=== PATIENT | male | born 1950 ===

== ENCOUNTER 2018-08-09 13:44 | Inpatient (IN) | payer OTHER ==
[2018-08-09 13:45] VITALS: BMI 31.2
[2018-08-09 16:34] LABS: BASO % 0.9 % (0.0-2.0); EOS % 0.8 % (0.0-4.0); HEMOGLOBIN 13.4 g/dL (12.0-18.0); LYMPH # 1.1 K/uL (1.0-4.3); LYMPH % 24.4 % (20.0-40.0); MEAN CORPUSCULAR HEMOGLOBIN 28.3 pg (27.0-31.0); MEAN CORPUSCULAR HGB CONC 32.6 g/dL (33.0-37.0); MEAN PLATELET VOLUME 9.6 fL (7.2-11.7); MONO # 0.5 K/uL (0.0-0.8); MONO % 10.9 % (0.0-10.0); NEUT # 2.9 K/uL (1.8-7.0); RBC 4.72 Mil/uL (4.40-5.90); WHITE BLOOD COUNT 4.6 K/uL (4.8-10.8)
--- NOTE | 2018-08-09 16:38 | C.PDOC ---
History Of Present Illness 67 y/o male,w/PMhx of liver cirrhosis, presents to the ER complaining of abdominal distention which has been present for the past 1 week. Patient states that he has hematuria and blood in stool. Patient reports that he still drinks about 1-2 beers per day. Denies having fever,chills, nausea, and vomiting. Time Seen by Provider: 08/09/18 15:48 Chief Complaint (Nursing): Abdominal Pain History Per: Patient History/Exam Limitations: no limitations Onset/Duration Of Symptoms: Days Current Symptoms Are (Timing): Still Present Severity: Moderate Past Medical History Reviewed: Historical Data, Nursing Documentation, Vital Signs Vital Signs: Last Vital Signs Temp 98.3 F 08/09/18 14:35 Pulse 91 H 08/09/18 14:35 Resp 18 08/09/18 16:02 BP 167/96 H 08/09/18 14:35 Pulse Ox 96 08/09/18 14:35 - Medical History PMH: Benign Prostatic Hyperplasia, Depression Other Surgeries: Hx of surgeries - [facility] Procedures ESOPHAGOGASTRODUODENOSCOPY [EGD] W/CLOSED BIOPSY (12/29/12) PACKED CELL TRANSFUSION (12/29/12) Family History: States: No Known Family Hx - Social History Hx Tobacco Use: No Hx Alcohol Use: Yes Hx Substance Use: No - Immunization History Hx Tetanus Toxoid Vaccination: No Hx Influenza Vaccination: No Hx Pneumococcal Vaccination: No Review Of Systems Except As Marked, All Systems Reviewed And Found Negative. Constitutional: Negative for: Fever, Chills Gastrointestinal: Positive for: Other (abdominal distention, blood in stool). Negative for: Vomiting, Diarrhea Genitourinary: Positive for: Hematuria Physical Exam - Physical Exam Appears: Non-toxic, No Acute Distress Skin: Normal Color, Warm, Dry Head: Atraumatic, Normacephalic Eye(s): bilateral: Normal Inspection Nose: Normal Oral Mucosa: Moist Neck: Supple Chest: Symmetrical Cardiovascular: Rhythm Regular Respiratory: Normal Breath Sounds, No Rales, No Rhonchi, No Wheezing Gastrointestinal/Abdominal: Soft, No Tenderness, Distention, No Guarding, No Rebound Extremity: Normal ROM, Other (3+ bilateral pitting edema) Neurological/Psych: Oriented x3, Normal Speech ED Course And Treatment - Laboratory Results Result Diagrams: 08/09/18 16:30 08/09/18 16:30 ECG: Interpreted By Me, Viewed By Me ECG Rhythm: Sinus Rhythm Interpretation Of ECG: NSR with normal intervals, normal axises, poor R wave progression, and no ST/ T wave abnormalities Rate From EC O2 Sat by Pulse Oximetry: 96 (RA) Pulse Ox Interpretation: Normal Medical Decision Making Medical Decision Making: Assessment: 1.Liver Cirrhosis 2.Ascites 3. Hematuria and GI Bleeding Plan: --Labs --UA --ECG --CXR --Protonix IV Disposition Discussed With Dr.: Gallito Tang Counseled Patient/Family Regarding: Studies Performed, Diagnosis - Disposition Disposition: HOSPITALIZED Disposition Time: 17:48 Condition: FAIR - Clinical Impression Clinical Impression: Ascites, Alcohol abuse - Scribe Statement The provider has reviewed the documentation as recorded by the Nimishaibe Helio Russo Provider Attestation: All medical record entries made by the Nimishaibe were at my direction and personally dictated by me. I have reviewed the chart and agree that the record accurately reflects my personal performance of the history, physical exam, medical decision making, and the department course for this patient. I have also personally directed, reviewed, and agree with the discharge instructions and disposition.
[2018-08-09 16:42] LABS: MEAN CELL VOLUME 86.8 fL (80.0-94.0)
[2018-08-09 16:48] LABS: INR 1.2; PROTHROMBIN TIME 13.6 SECONDS (9.7-12.2)
[2018-08-09 16:53] LABS: ALB/GLOB RATIO 0.9 (1.0-2.1); ALBUMIN 3.2 g/dL (3.5-5.0); ALT/SGPT 44 U/L (21-72); AST/SGOT 121 U/L (17-59); BLOOD UREA NITROGEN 3 mg/dL (9-20); CALCIUM 8.1 mg/dl (8.6-10.4); GFR NON-AFRICAN AMERICAN > 60; LIPASE 132 U/L (23-300)
[2018-08-09 17:51] LABS: SQUAMOUS EPITHIAL 1 /hpf (0-5); URINE HYALINE CAST 0-2 /lpf (0-2)
[2018-08-09 17:57] LABS: URINE CLARITY Clear (Clear); URINE COLOR YELLOW (YELLOW)
[2018-08-09 17:58] LABS: URINE BILIRUBIN NEGATIVE (NEGATIVE); URINE GLUCOSE (UA) Normal (Normal)
--- NOTE | 2018-08-09 17:58 | RAD ---
Date of service: 08/09/2018 PROCEDURE: CHEST RADIOGRAPH, 1 VIEW HISTORY: abd pain COMPARISON: 12/28/2012 FINDINGS: LUNGS: Low lung volumes, portable technique accentuate markings at the lung bases. PLEURA: No pneumothorax or pleural fluid seen. CARDIOVASCULAR: No aortic atherosclerotic calcification present. Normal. OSSEOUS STRUCTURES: No significant abnormalities. VISUALIZED UPPER ABDOMEN: Normal. OTHER FINDINGS: None. IMPRESSION: No active disease.No significant interval change compared to the prior examination(s).
[2018-08-09 17:59] LABS: URINE BLOOD 1+ (NEGATIVE); URINE PROTEIN NEGATIVE (NEGATIVE)
[2018-08-09 18:00] LABS: URINE LEUKOCYTE ESTERASE NEGATIVE Leu/uL (Negative)
[2018-08-09] MEDS ORDERED: Iohexol 300 100 ML IJ ONE (18:01)
--- NOTE | 2018-08-09 19:07 | CP.PCM.HP ---
<Valorie Dyson P - Last Filed: 08/10/18 09:40> History of Present Illness - History of Present Illness History of Present Illness: H&P for Dr. Tang. 67 year old male with PMHx of alcohol use disorder and liver cirrhosis with TIPS presents to ED for worsening abdominal distention for the past 2 weeks. Associated symptoms include abdominal pain described as pressure, testicular swelling, leg swelling, subjective fever, chills, nausea, diarrhea, flatus, melena. Patient also complains of urinary frequency, urinary retention and gross hematuria since yesterday. Patient states he has never experienced these symptoms before. Denies chest pain, palpitations, shortness of breath, cough, vomiting, constipation, hematochezia. PMHx: liver cirrhosis with TIPS, alcohol use disorder PSHx: TIPS 2005, Esophogeal bands Meds: none Allergies:NKDA Family Hx: Denies Social: 2 beers daily, denies withdrawal seizures, Denies illicit drugs and tobacco use. Works odd jobs. Proxy: son, Eliot Figueredo [phone] Review of Systems: -Gen: +subjective fever, + chills, No headache, No lethargy, No weakness. -HEENT: No dizziness, No change in vision, No change in hearing, No sore throat, No dysphagia, No nasal congestion, No mucous. -Cardio: No chest pain, No palpitations, No lower extremity edema, No orthopnea. -Resp: No cough, No dyspnea, No hemoptysis, No wheezing, No pain on inspiration. -GI: + abdominal pain, + nausea, No vomiting, + diarrhea, +melena. -: + urinary freq, + hematuria, +retention -MSK: No back pain, No muscle weakness, No radiating pain. -Skin: No itching, No rash, No lesions. -Neuro: No confusion, No numbness, No tingling, No focal weakness, No radicular pain, No syncope. Present on Admission - Present on Admission Any Indicators Present on Admission: No Past Patient History - Past Social History Smoking Status: Never Smoked - GASTROINTESTINAL Other/Comment: Cirrhosis - PSYCHIATRIC Hx Depression: Yes Hx Substance Use: No - SURGICAL HISTORY Hx Liver Transplant: Yes Other/Comment: wall stent implant - ANESTHESIA Hx Anesthesia: Yes Hx Anesthesia Reactions: No Meds Allergies/Adverse Reactions: Allergies Allergy/AdvReac Type Severity Reaction Status Date / Time No Known Allergies Allergy Verified 12/15/12 21:54 Physical Exam - Constitutional Appears: No Acute Distress, Other (smells of alcohol) - Head Exam Head Exam: ATRAUMATIC, NORMOCEPHALIC - Eye Exam Eye Exam: EOMI, Scleral icterus - ENT Exam ENT Exam: Mucous Membranes Moist - Neck Exam Neck exam: Negative for: Lymphadenopathy - Respiratory Exam Respiratory Exam: Clear to Auscultation Bilateral, NORMAL BREATHING PATTERN. absent: Rales, Rhonchi, Wheezes - Cardiovascular Exam Cardiovascular Exam: REGULAR RHYTHM, +S1, +S2. absent: Systolic Murmur - GI/Abdominal Exam GI & Abdominal Exam: Distended, Firm, Tenderness (diffusely tender). absent: Guarding, Rebound Additional comments: dullness to percussion. umbilical hernia, bilateral inguinal hernias R>L - Rectal Exam Additional comments: External hemorrhoid from 1oclock to 6oclock. Light brown stool. No active bleeding noted. - Exam Exam: Scrotal Swelling (L>R) - Extremities Exam Extremities exam: Positive for: full ROM, pedal edema (1+ pitting edema bilaterally). Negative for: calf tenderness, normal inspection (lower extremity swelling, upper extremity wasting) - Neurological Exam Neurological exam: Alert, CN II-XII Intact, Oriented x3 - Psychiatric Exam Psychiatric exam: Normal Affect, Normal Mood - Skin Additional comments: mild jaundice Results - Vital Signs Recent Vital Signs: Last Vital Signs Temp 98.3 F 08/09/18 14:35 Pulse 88 08/09/18 17:46 Resp 18 08/09/18 17:46 BP 146/83 08/09/18 17:46 Pulse Ox 96 08/09/18 18:13 - Labs Result Diagrams: 08/10/18 07:25 08/10/18 07:25 Labs: Laboratory Results - last 24 hr 08/09/18 08/09/18 08/09/18 16:30 16:30 16:30 WBC 4.6 L RBC 4.72 Hgb 13.4 Hct 40.9 MCV 86.8 D MCH 28.3 MCHC 32.6 L RDW 18.0 H Plt Count 152 MPV 9.6 Neut % (Auto) 63.0 Lymph % (Auto) 24.4 [place] % (Auto) 10.9 H Eos % (Auto) 0.8 Baso % (Auto) 0.9 Neut # (Auto) 2.9 Lymph # (Auto) 1.1 [place] # (Auto) 0.5 Eos # (Auto) 0.0 Baso # (Auto) 0.0 PT 13.6 H INR 1.2 APTT 32 Sodium 136 Potassium 3.2 L Chloride 102 Carbon Dioxide 26 Anion Gap 10 BUN 3 L Creatinine 0.5 L Est GFR ( Amer) > 60 Est GFR (Non-Af Amer) > 60 Random Glucose 143 H D Calcium 8.1 L Total Bilirubin 2.5 H AST 121 H ALT 44 Alkaline Phosphatase 169 H Ammonia Troponin I < 0.0120 Total Protein 6.8 Albumin 3.2 L D Globulin 3.6 Albumin/Globulin Ratio 0.9 L Lipase 132 Urine Color Urine Clarity Urine pH Ur Specific [place] Urine Protein Urine Glucose (UA) Urine Ketones Urine Blood Urine Nitrate Urine Bilirubin Urine Urobilinogen Ur Leukocyte Esterase Urine WBC (Auto) Urine RBC (Auto) Ur Squamous Epith Cells Hyaline Casts Alcohol, Quantitative 203 H Blood Type Antibody Screen 08/09/18 08/09/18 08/09/18 16:30 16:30 17:00 WBC RBC Hgb Hct MCV MCH MCHC RDW Plt Count MPV Neut % (Auto) Lymph % (Auto) Livingston % (Auto) Eos % (Auto) Baso % (Auto) Neut # (Auto) Lymph # (Auto) Living[place] # (Auto) Eos # (Auto) Baso # (Auto) PT INR APTT Sodium Potassium Chloride Carbon Dioxide Anion Gap BUN Creatinine Est GFR ( Amer) Est GFR (Non-Af Amer) Random Glucose Calcium Total Bilirubin AST ALT Alkaline Phosphatase Ammonia < 9 L Troponin I Total Protein Albumin Globulin Albumin/Globulin Ratio Lipase Urine Color Yellow Urine Clarity Clear Urine pH 5.0 Ur Specific [place] 1.011 Urine Protein Negative Urine Glucose (UA) Normal Urine Ketones Negative Urine Blood 1+ H Urine Nitrate Negative Urine Bilirubin Negative Urine Urobilinogen 4.0 Ur Leukocyte Esterase Negative Urine WBC (Auto) 1 Urine RBC (Auto) 3 Ur Squamous Epith Cells 1 Hyaline Casts 0-2 Alcohol, Quantitative Blood Type O POSITIVE Antibody Screen Negative Assessment & Plan - Assessment and Plan (Free Text) Plan: 67 year old male with PMHx of liver cirrhosis with TIPS and alcohol use disorder admitted for ascites Ascites Liver cirrhosis CT abdomen: Large amount of ascites with cirrhotic liver. TIPS catheter within liver. Splenomegaly. See full report. Abd US 2014: TIPS stent occlusion is seen. See full report IR consulted for evaluation of replacing TIPS Spironolactone 25mg PO BID Propranolol 20mg PO BID Fluid restriction Alcohol use disorder Folic Acid 1mg PO daily Ativan 1mg IVP Q4H PRN withdrawal sx Thiamine 100mg PO daily Multivitamin CIWA protocol Hematuria INR 1.2 Hgb: 14 Monitor H&H PPx VTE contraindicated due to complaint of hematuria Discussed with Dr. Kitty Dyson, PGY-1 <Gallito Tang P - Last Filed: 08/11/18 08:53> Results - Vital Signs Recent Vital Signs: Last Vital Signs Temp 98.9 F 08/11/18 08:15 Pulse 67 08/11/18 08:15 Resp 20 08/11/18 08:15 BP 122/75 08/11/18 08:15 Pulse Ox 96 08/11/18 08:15 - Labs Result Diagrams: 08/11/18 06:27 08/11/18 06:27 Labs: Laboratory Results - last 24 hr 08/10/18 08/10/18 08/10/18 07:25 17:06 21:13 WBC RBC Hgb Hct MCV MCH MCHC RDW Plt Count MPV Neut % (Auto) Lymph % (Auto) Living[place] % (Auto) Eos % (Auto) Baso % (Auto) Neut # (Auto) Lymph # (Auto) Living[place] # (Auto) Eos # (Auto) Baso # (Auto) Sodium 135 Potassium 3.6 Chloride 103 Carbon Dioxide 27 Anion Gap 9 L BUN 4 L Creatinine 0.5 L Est GFR ( Amer) > 60 Est GFR (Non-Af Amer) > 60 Random Glucose 112 H D Lactic Acid 1.4 Calcium 8.0 L Phosphorus 2.9 Magnesium 1.6 Total Bilirubin 3.0 H AST 102 H ALT 31 Alkaline Phosphatase 159 H Total Protein 6.1 L Albumin 2.8 L Globulin 3.2 Albumin/Globulin Ratio 0.9 L Lipase 98 Fluid Source Peritoneal/ascites Fluid Appearance Sl cloudy Fluid WBC 42.0 Fluid RBC 93.0 H Fluid Tot Cell Count 100 H Fluid Neutrophils 26.0 H Fluid Lymphocytes 52.0 H Fld Monocyte/Macrophag 22 H Fluid Comment 08/11/18 08/11/18 06:27 06:27 WBC 4.6 L RBC 4.42 Hgb 12.9 Hct 39.1 MCV 88.4 MCH 29.1 MCHC 32.9 L RDW 17.7 H Plt Count 116 L D MPV 10.0 Neut % (Auto) 66.8 Lymph % (Auto) 16.6 L Livingston % (Auto) 14.3 H Eos % (Auto) 1.7 Baso % (Auto) 0.6 Neut # (Auto) 3.1 Lymph # (Auto) 0.8 L [place] # (Auto) 0.7 Eos # (Auto) 0.1 Baso # (Auto) 0.0 Sodium 133 Potassium 3.9 Chloride 98 Carbon Dioxide 31 H Anion Gap 8 L BUN 8 L Creatinine 0.7 L Est GFR ( Amer) > 60 Est GFR (Non-Af Amer) > 60 Random Glucose 105 Lactic Acid Calcium 8.0 L Phosphorus 2.5 Magnesium 1.6 Total Bilirubin 3.9 H AST 84 H ALT 28 Alkaline Phosphatase 129 H Total Protein 5.7 L Albumin 2.9 L Globulin 2.8 Albumin/Globulin Ratio 1.0 Lipase Fluid Source Fluid Appearance Fluid WBC Fluid RBC Fluid Tot Cell Count Fluid Neutrophils Fluid Lymphocytes Fld Monocyte/Macrophag Fluid Comment Attending/Attestation - Attestation I have personally seen and examined this patient.: Yes I have fully participated in the care of the patient.: Yes I have reviewed all pertinent clinical information: Yes Notes (Text): 08/11/18 08:52 History of TIPPS, now blocked with symptomatic ascitis Ongoing alcohol abuse H/o hepc, probably cleared virus Plan IR, hepatic surg consult for possible tipps revision tap counselled about alcoholism watch for withdrawal, thiamine, mvt see orders for detail.
[2018-08-09 20:59] VITALS: RESP 20
[2018-08-10 07:36] LABS: BASO % 0.4 % (0.0-2.0); EOS # 0.1 K/uL (0.0-0.7); EOS % 1.5 % (0.0-4.0); HEMOGLOBIN 12.5 g/dL (12.0-18.0); LYMPH # 0.7 K/uL (1.0-4.3); LYMPH % 15.7 % (20.0-40.0); MEAN CELL VOLUME 87.1 fL (80.0-94.0); MEAN CORPUSCULAR HEMOGLOBIN 28.8 pg (27.0-31.0); MEAN PLATELET VOLUME 9.8 fL (7.2-11.7); MONO # 0.7 K/uL (0.0-0.8); MONO % 15.8 % (0.0-10.0); NEUT # 2.8 K/uL (1.8-7.0); NEUT % 66.6 % (50.0-75.0); RBC 4.33 Mil/uL (4.40-5.90); RED CELL DISTRIBUTION WIDTH 18.1 % (11.5-14.5); WHITE BLOOD COUNT 4.2 K/uL (4.8-10.8)
[2018-08-10 08:10] LABS: ALB/GLOB RATIO 0.9 (1.0-2.1); ALBUMIN 2.8 g/dL (3.5-5.0); ALT/SGPT 31 U/L (21-72); AST/SGOT 102 U/L (17-59); BLOOD UREA NITROGEN 4 mg/dL (9-20); GFR NON-AFRICAN AMERICAN > 60
[2018-08-10] MEDS: Multiple Vitamins Tab PO SCH (09:47)
[2018-08-10] MEDS ORDERED: Lidocaine 2% MPF (5 ml) Inj ONE (10:50)
--- NOTE | 2018-08-10 11:08 | CT ---
Date of service: 08/09/2018 PROCEDURE: CT Abdomen and Pelvis with contrast HISTORY: abd. distention COMPARISON: Abdominal ultrasound performed 10/16/14 TECHNIQUE: Contrast dose: 100 mL Omnipaque 300 IV Radiation dose: Total exam DLP = 922.87 mGy-cm. This CT exam was performed using one or more of the following dose reduction techniques: Automated exposure control, adjustment of the mA and/or kV according to patient size, and/or use of iterative reconstruction technique. FINDINGS: LOWER THORAX: Mild bibasilar atelectasis. No visible pleural effusion or pneumothorax. Partially imaged cardiomegaly. LIVER: Nodular hepatic contour. Heterogeneous hepatic parenchyma. Tips stent. GALLBLADDER AND BILE DUCTS: Unremarkable. PANCREAS: Unremarkable. SPLEEN: Splenomegaly. ADRENALS: Ill-defined soft tissue density in the region of the left adrenal gland measuring approximately 2.1 x 3.7 cm. KIDNEYS AND URETERS: The kidneys enhance symmetrically. No hydronephrosis or obstructing calculus identified. Small right lower pole renal cyst. VASCULATURE: No aortic aneurysm. Atherosclerotic calcifications of the aorta and branches. BOWEL: Stomach is nondistended. Lack of oral contrast limits evaluation for bowel pathology. Bowel loops appear within normal limits of caliber without evidence of obstruction. Nonspecific small bowel wall thickening; correlate clinically for possibility of enteritis. Diverticulosis. Rectal wall thickening; correlate clinically for possibility of proctitis. APPENDIX: The appendix is not identified. PERITONEUM: Large abdominal/pelvic ascites. No definite free air. LYMPH NODES: No bulky adenopathy identified. BLADDER: Mildly thick-walled urinary bladder. REPRODUCTIVE: Unremarkable. BONES: Extensive degenerative changes. OTHER FINDINGS: Bilateral gynecomastia. Fluid within an umbilical hernia. Bilateral inguinal hernias containing fluid which extends into the scrotum. Soft tissue edema. IMPRESSION: Large volume ascites with cirrhotic appearance of the liver. Tips catheter present. Splenomegaly. Soft tissue density at the level of the left adrenal gland which is ill-defined and measures approximately 2.1 x 3.7 cm. Nonspecific small bowel wall thickening; correlate clinically for possibility of enteritis. Diverticulosis. Rectal wall thickening; correlate clinically for possibility of proctitis. Correlate clinically and if indicated suggest further evaluation with colonoscopy. Urinary bladder appears mildly thick walled; correlate with urinalysis. Bilateral inguinal hernias containing fluid which extends into the scrotum. Fluid within an umbilical hernia. Additional incidental findings as above. Preliminary impression was provided by [facility].
--- NOTE | 2018-08-10 11:29 | PCM.SURG1 ---
Surgeon's Initial Post Op Note - Surgeon's Notes Surgeon: JAMAL [employer] Analyst: NONE Type of Anesthesia: Local Pre-Operative Diagnosis: Ascites, cirrhosis Operative Findings: US showed large amount of ascites Post-Operative Diagnosis: Ascites, cirrhosis Operation Performed: US guided paracentesis Specimen/Specimens Removed: 6300 cc of clear fluid Estimated Blood Loss: EBL {In ML}: 0 Blood Products Given: N/A Drains Used: No Drains Post-Op Condition: Fair Date of Surgery/Procedure: 08/10/18 Time of Surgery/Procedure: 11:25
--- NOTE | 2018-08-10 11:34 | CP.PCM.PN ---
<Hi Alfredo - Last Filed: 08/10/18 13:21> Subjective - Date & Time of Evaluation Date of Evaluation: 08/10/18 Time of Evaluation: 10:00 - Subjective Subjective: Medicine progress note for Dr. Raman Pt seen and examined at bedside. Pt is resting comfortably. Complains of abdominal pain, described as a pressure, and abdominal distension. He states that the abdominal distension is causing him some nausea. Endorses soft bowel movements, denies hematochezia or melena. He also endorses feeling feverish, without chills. He states that he knows that he should not be drinking but still does. Denies fever, chills, chest pain, sob, v, headache, dizziness, numbness or tingling, visual disturbances. Objective - Vital Signs/Intake and Output Vital Signs (last 24 hours): Temp Pulse Resp BP Pulse Ox 98.4 F 102 H 20 171/95 H 95 08/10/18 08:00 08/10/18 08:00 08/10/18 08:00 08/10/18 08:00 08/10/18 08:00 Intake and Output: 08/10/18 08/10/18 06:59 18:59 Intake Total 350 Balance 350 - Medications Medications: Current Medications Folic Acid (Folic Acid) 1 mg PO DAILY [facility] Last Admin: 08/10/18 09:47 Dose: 1 mg Lorazepam (Ativan) 1 mg IVP Q4H PRN PRN Reason: Symptoms of alcohol withdrawl Multivitamins (Hexavitamin) 1 tab PO DAILY [facility] Last Admin: 08/10/18 09:47 Dose: 1 tab Pneumococcal Polyvalent Vaccine (Pneumovax 23 Vaccine) 0.5 ml IM .ONCE ONE Stop: 08/11/18 10:01 Propranolol HCl (Inderal) 20 mg PO BID [facility] Last Admin: 08/10/18 09:47 Dose: 20 mg Spironolactone (Aldactone) 25 mg PO BID [facility] Last Admin: 08/10/18 09:47 Dose: 25 mg Thiamine HCl (Vitamin B1 Tab) 100 mg PO DAILY [facility] Last Admin: 08/10/18 09:47 Dose: 100 mg - Labs Labs: 08/10/18 07:25 08/10/18 07:25 PT 13.6 SECONDS (9.7-12.2) H 08/09/18 16:30 INR 1.2 08/09/18 16:30 APTT 32 SECONDS (21-34) 08/09/18 16:30 - Constitutional Appears: Non-toxic, No Acute Distress - Head Exam Head Exam: ATRAUMATIC, NORMAL INSPECTION - Eye Exam Eye Exam: EOMI, Scleral icterus (minimal) - ENT Exam ENT Exam: Mucous Membranes Moist - Respiratory Exam Respiratory Exam: Decreased Breath Sounds, Clear to Ausculation Bilateral. absent: Rales, Rhonchi, Wheezes, Respiratory Distress - Cardiovascular Exam Cardiovascular Exam: REGULAR RHYTHM, +S1, +S2. absent: Tachycardia, Diastolic murmur, Irregular Rhythm, JVD, Murmur - GI/Abdominal Exam GI & Abdominal Exam: Distended, Soft, Tenderness (mild tenderness in all quadrants), Normal Bowel Sounds, Organomegaly. absent: Firm, Rigid Additional comments: (+) ascites (+) abdominal veins, spider angiomas - Extremities Exam Extremities Exam: Normal Capillary Refill, Pedal Edema (1+ pitting edema to the proximal tibia bilaterally). absent: Calf Tenderness - Back Exam Back Exam: NORMAL INSPECTION. absent: rash noted - Neurological Exam Neurological Exam: Alert, Awake - Psychiatric Exam Psychiatric exam: Normal Affect, Normal Mood - Skin Skin Exam: Dry, Normal Color, Warm Assessment and Plan - Assessment and Plan (Free Text) Assessment: 67 year old male with PMHx of liver cirrhosis with TIPS and alcohol use disorder admitted for abdominal pain due to ascites. Pt with abdominal US in 2014 that shows occlusion of TIPS stent. Plan: Abdominal pain Liver cirrhosis with ascites secondary to portal hypertension with hx of TIPS procedure Hx of varices as per pt CT abdomen: Large amount of ascites with cirrhotic liver. TIPS catheter within liver. Splenomegaly. See full report. Abd US 2015: TIPS stent occlusion is seen. See full report Tbili is stable, but elevated at 3.0 Albumin is stable, but decreased at 2.8 Ammonia less than 9 IR consulted for evaluation of replacing TIPS and paracentesis Discussed with Dr. Rose, IR, who will proceed with paracentesis today (with fluid anaylsis) and evaluation of TIPS stent Spironolactone 25mg PO BID Propranolol 20mg PO BID Fluid restriction Transaminitis Secondary to liver cirrhosis AST/ALT/ALP stable Alcohol use disorder Folic Acid 1mg PO daily Ativan 1mg IVP Q4H PRN withdrawal sx Thiamine 100mg PO daily Multivitamin CIWA protocol Hematuria, resolved UA shows 1+ blood on admission H/H is stable Continue to monitor PPx Protonix 40 mg IVP daily SCDs, chemical VTE ppx on hold due to planned procedure NPO past midnight for TIPS evaluation Dispo: Therapeutic and diagnostic paracentesis with IR today, evaluation of TIPS tomorrow by IR. <Carlos Raman H - Last Filed: 08/10/18 13:44> Objective - Vital Signs/Intake and Output Vital Signs (last 24 hours): Temp Pulse Resp BP Pulse Ox 98.4 F 102 H 20 171/95 H 95 08/10/18 08:00 08/10/18 08:00 08/10/18 08:00 08/10/18 08:00 08/10/18 08:00 Intake and Output: 08/10/18 08/10/18 06:59 18:59 Intake Total 350 Balance 350 - Medications Medications: Current Medications Folic Acid (Folic Acid) 1 mg PO DAILY [facility] Last Admin: 08/10/18 09:47 Dose: 1 mg Lorazepam (Ativan) 1 mg IVP Q4H PRN PRN Reason: Symptoms of alcohol withdrawl Multivitamins (Hexavitamin) 1 tab PO DAILY [facility] Last Admin: 08/10/18 09:47 Dose: 1 tab Pantoprazole Sodium (Protonix Inj) 40 mg IVP DAILY [facility] Pneumococcal Polyvalent Vaccine (Pneumovax 23 Vaccine) 0.5 ml IM .ONCE ONE Stop: 08/11/18 10:01 Propranolol HCl (Inderal) 20 mg PO BID [facility] Last Admin: 08/10/18 09:47 Dose: 20 mg Spironolactone (Aldactone) 25 mg PO BID [facility] Last Admin: 08/10/18 09:47 Dose: 25 mg Thiamine HCl (Vitamin B1 Tab) 100 mg PO DAILY [facility] Last Admin: 08/10/18 09:47 Dose: 100 mg - Labs Labs: 08/10/18 07:25 08/10/18 07:25 PT 13.6 SECONDS (9.7-12.2) H 08/09/18 16:30 INR 1.2 08/09/18 16:30 APTT 32 SECONDS (21-34) 08/09/18 16:30 Attending/Attestation - Attestation I have personally seen and examined this patient.: Yes I have fully participated in the care of the patient.: Yes I have reviewed all pertinent clinical information, including history, physical exam and plan: Yes Notes (Text): 08/10/18 13:42 Medical attending: Patient was seen and examined by me. Agree with the above note by the resident The patient was not in any acute distress when we came and saw. Per IR, the patient should be made NPO and they will try to see if the shunt can be repaired tommorow. Patient had about 6 Liters removed today and later this evening will be reciving albumin IV as well Carlos Raman
--- NOTE | 2018-08-10 12:59 | US ---
Date of Procedure: 08/10/2018 PROCEDURE: Ultrasound-guided paracentesis, CPT 96159 Medications: 7 cc 1% Lidocaine HISTORY: Ascites, abdominal pain, cirrhosis TECHNIQUE: Following informed consent , the patient was placed supine on the stretcher and the site was marked. A limited abdominal ultrasound was performed that showed a large amount of intra-abdominal fluid. Procedural time out was called and the Pt's abdomen was marked and prepped and draped in the usual sterile fashion. Ultrasound-guided large volume paracentesis performed. A total of 6.3 Liters of straw colored fluid was removed without complication. IMPRESSION: Ultrasound-guided large volume paracentesis.
[2018-08-10 13:32] LABS: LIPASE 98 U/L (23-300)
[2018-08-10] MEDS: Albumin Human 25% (12.5 gm/50 ml) IV SCH ×3 (16:15→17:35)
--- NOTE | 2018-08-10 20:42 | CARD ---
APPROVED REPORT Date of service: 08/09/2018 EKG Measurement Heart [id number] <Conclusion> Normal sinus rhythm Possible Lateral infarct, age undetermined Inferior infarct, age undetermined Abnormal ECG
[2018-08-10 21:14] LABS: BODY FLUID TYPE PERITONEAL/ASCITES
[2018-08-10 23:40] LABS: BF GROSS APPEARANCE SL CLOUDY (CLEAR); BODY FLUID MONO/MACROPHAGE 22 % (0-0)
[2018-08-10 23:41] LABS: BODY FLUID TOTAL COUNT 100 (0-0)
[2018-08-11 06:37] LABS: BASO % 0.6 % (0.0-2.0); EOS # 0.1 K/uL (0.0-0.7); EOS % 1.7 % (0.0-4.0); HEMOGLOBIN 12.9 g/dL (12.0-18.0); LYMPH # 0.8 K/uL (1.0-4.3); LYMPH % 16.6 % (20.0-40.0); MEAN CELL VOLUME 88.4 fL (80.0-94.0); MEAN CORPUSCULAR HEMOGLOBIN 29.1 pg (27.0-31.0); MEAN CORPUSCULAR HGB CONC 32.9 g/dL (33.0-37.0); MONO # 0.7 K/uL (0.0-0.8); MONO % 14.3 % (0.0-10.0); NEUT # 3.1 K/uL (1.8-7.0); NEUT % 66.8 % (50.0-75.0); NRBC % 0.1 % (0.0-2.0); RBC 4.42 Mil/uL (4.40-5.90); RED CELL DISTRIBUTION WIDTH 17.7 % (11.5-14.5); WHITE BLOOD COUNT 4.6 K/uL (4.8-10.8)
[2018-08-11 07:40] LABS: ALBUMIN 2.9 g/dL (3.5-5.0); ALT/SGPT 28 U/L (21-72); AST/SGOT 84 U/L (17-59); BLOOD UREA NITROGEN 8 mg/dL (9-20); GFR NON-AFRICAN AMERICAN > 60
[2018-08-11] MEDS: Multiple Vitamins Tab PO SCH (09:21)
[2018-08-11 09:24] LABS: BILIRUBIN,DIRECT 1.9 mg/dL (0.0-0.4)
[2018-08-11] MEDS ORDERED: Pneumococcal 23-Valent Vaccine IM ONE (10:00)
--- NOTE | 2018-08-11 11:08 | CP.PCM.PN ---
<Hi Alfredo - Last Filed: 08/11/18 11:03> Subjective - Date & Time of Evaluation Date of Evaluation: 08/11/18 Time of Evaluation: 11:04 - Subjective Subjective: Medicine progress note for Dr. Raman Pt seen and examined at bedside. Pt is resting comfortably. Reports abdominal pressure and distension is improved, but still there. Endorses pressure pain in the scrotum, umblicaus and groin areas. Denies fever, chills, chest pain, sob, n/d/v, headache, dizziness, numbness or tingling, visual disturbances, pain at paracentesis site. Objective - Vital Signs/Intake and Output Vital Signs (last 24 hours): Temp Pulse Resp BP Pulse Ox 98.9 F 67 20 122/75 96 08/11/18 08:15 08/11/18 08:15 08/11/18 08:15 08/11/18 08:15 08/11/18 08:15 Intake and Output: 08/11/18 08/11/18 06:59 18:59 Intake Total 500 Balance 500 - Medications Medications: Current Medications Albumin Human (Albumin Human 25% (12.5 Gm/50 Ml)) 12.5 gm IV ONCE ONE Stop: 08/11/18 11:31 Folic Acid (Folic Acid) 1 mg PO DAILY [facility]S [facility] 234 BEDS AT [facility] Last Admin: 08/11/18 09:21 Dose: 1 mg Lorazepam (Ativan) 1 mg IVP Q4H PRN PRN Reason: Symptoms of alcohol withdrawl Multivitamins (Hexavitamin) 1 tab PO DAILY COUNTS INCLUDE 234 BEDS AT THE [facility] Last Admin: 08/11/18 09:21 Dose: 1 tab Pantoprazole Sodium (Protonix Inj) 40 mg IVP DAILY COUNTS INCLUDE 234 BEDS AT THE [facility] Last Admin: 08/11/18 09:22 Dose: 40 mg Propranolol HCl (Inderal) 20 mg PO BID COUNTS INCLUDE 234 BEDS AT THE [facility] Last Admin: 08/11/18 09:21 Dose: 20 mg Spironolactone (Aldactone) 25 mg PO BID COUNTS INCLUDE 234 BEDS AT THE [facility] Last Admin: 08/11/18 09:21 Dose: 25 mg Thiamine HCl (Vitamin B1 Tab) 100 mg PO DAILY COUNTS INCLUDE 234 BEDS AT THE [facility] Last Admin: 08/11/18 09:21 Dose: 100 mg - Labs Labs: 08/11/18 06:27 08/11/18 06:27 PT 13.6 SECONDS (9.7-12.2) H 08/09/18 16:30 INR 1.2 08/09/18 16:30 APTT 32 SECONDS (21-34) 08/09/18 16:30 - Additional Findings Additional findings: - Constitutional Appears: Non-toxic, No Acute Distress - Head Exam Head Exam: ATRAUMATIC, NORMAL INSPECTION - Eye Exam Eye Exam: EOMI, Scleral icterus (minimal) - ENT Exam ENT Exam: Mucous Membranes Moist - Respiratory Exam Respiratory Exam: Decreased Breath Sounds, Clear to Ausculation Bilateral. absent: Rales, Rhonchi, Wheezes, Respiratory Distress - Cardiovascular Exam Cardiovascular Exam: REGULAR RHYTHM, +S1, +S2. absent: Tachycardia, Diastolic murmur, Irregular Rhythm, JVD, Murmur - GI/Abdominal Exam GI & Abdominal Exam: Distended (improved), Soft, Tenderness (minimal tenderness in all quadrants), Normal Bowel Sounds, Organomegaly, (+) umbilical hernia, reducible, nontender, nonerythematous. absent: Firm, Rigid Additional comments: (+) ascites (+) abdominal veins, spider angiomas - Exam Exam: (+) right inguinal hernia, minimally tender, no erythema, no warmth; (+) scrotal swelling, with minimal erythema, no warmth, minimally tender - Extremities Exam Extremities Exam: Normal Capillary Refill, Pedal Edema (trace pitting edema to the proximal tibia bilaterally). absent: Calf Tenderness, tremors - Back Exam Back Exam: NORMAL INSPECTION. absent: rash noted - Neurological Exam Neurological Exam: Alert, Awake - Psychiatric Exam Psychiatric exam: Normal Affect, Normal Mood - Skin Skin Exam: Dry, Jaundice, Warm Assessment and Plan - Assessment and Plan (Free Text) Assessment: 67 year old male with PMHx of liver cirrhosis with TIPS and alcohol use disorder admitted for abdominal pain due to ascites. Pt with abdominal US in 2015 that shows occlusion of TIPS stent. Plan: Abdominal pain Liver cirrhosis with ascites secondary to portal hypertension with hx of TIPS procedure Hx of varices CT abdomen: Large amount of ascites with cirrhotic liver. TIPS catheter within liver. Splenomegaly. See full report. Abd US 2015: TIPS stent occlusion is seen. See full report Tbili is 3.9, direct bili is 1.9 Albumin is stable at 2.9 s/p albumin 25% 12.5g x3, will give one more 12.5g 25% of albumin today Ammonia less than 9 IR, Dr. Rose, consulted for evaluation of replacing TIPS and paracentesis 08/10: 6300mL of clear fluid aspirated from paracentesis. WBC is 42. RBC is 93, Total neutrophil is 10.92, Lymphocyte count is 52%, Macrophage/Monocyte count is 22% Fluid Albumin, LDH, Glucose, culture pending Less likely SBP as pt without fever, leukocytosis and low ascitic fluid total absolute neutrophil count Spironolactone 25mg PO BID Propranolol 20mg PO BID Will add Lasix 20 mg PO BID to start after Fluid restriction Transaminitis Secondary to liver cirrhosis and alcoholism AST/ALT/ALP was 121/44/169 on admission; downtrending Continue to monitor Alcohol use disorder Folic Acid 1mg PO daily Ativan 1mg IVP Q4H PRN withdrawal sx Thiamine 100mg PO daily Multivitamin CIWA protocol Multiple hernias Umbilical hernia, bilateral inguinal hernias Abdominal CT confirms fluid filled hernias Lactate is 1.4 Likely worsened due to increased abdominal pressure from ascites Pt is moving his bowels without difficulty and urinating with difficulty Continue to monitor Hematuria, resolved UA shows 1+ blood on admission H/H is stable Continue to monitor PPx Protonix 40 mg IVP daily SCDs, chemical VTE ppx on hold due to planned procedure NPO for TIPS evaluation <Carlos Raman H - Last Filed: 08/11/18 14:50> Objective - Vital Signs/Intake and Output Vital Signs (last 24 hours): Temp Pulse Resp BP Pulse Ox 98.9 F 67 20 122/75 96 08/11/18 08:15 08/11/18 08:15 08/11/18 08:15 08/11/18 08:15 08/11/18 08:15 Intake and Output: 08/11/18 08/11/18 06:59 18:59 Intake Total 500 50 Balance 500 50 - Medications Medications: Current Medications Folic Acid (Folic Acid) 1 mg PO DAILY COUNTS INCLUDE 234 BEDS AT [facility] Last Admin: 08/11/18 09:21 Dose: 1 mg Furosemide (Lasix) 20 mg PO BID [facility] Lorazepam (Ativan) 1 mg IVP Q4H PRN PRN Reason: Symptoms of alcohol withdrawl Multivitamins (Hexavitamin) 1 tab PO DAILY COUNTS INCLUDE 234 BEDS AT [facility] Last Admin: 08/11/18 09:21 Dose: 1 tab Pantoprazole Sodium (Protonix Inj) 40 mg IVP DAILY COUNTS INCLUDE 234 BEDS AT [facility] Last Admin: 08/11/18 09:22 Dose: 40 mg Propranolol HCl (Inderal) 20 mg PO BID COUNTS INCLUDE 234 BEDS AT [facility] Last Admin: 08/11/18 09:21 Dose: 20 mg Spironolactone (Aldactone) 25 mg PO BID COUNTS INCLUDE 234 BEDS AT [facility] Last Admin: 08/11/18 09:21 Dose: 25 mg Thiamine HCl (Vitamin B1 Tab) 100 mg PO DAILY COUNTS INCLUDE 234 BEDS AT [facility] Last Admin: 08/11/18 09:21 Dose: 100 mg - Labs Labs: 08/11/18 06:27 08/11/18 06:27 PT 13.6 SECONDS (9.7-12.2) H 08/09/18 16:30 INR 1.2 08/09/18 16:30 APTT 32 SECONDS (21-34) 08/09/18 16:30 Attending/Attestation - Attestation I have personally seen and examined this patient.: Yes I have fully participated in the care of the patient.: Yes I have reviewed all pertinent clinical information, including history, physical exam and plan: Yes Notes (Text): 08/11/18 14:48 Medical attending: Patient was seen and examined by me. Agree with the above note by the resident The patient was not in any acute distress when we came and saw him. Last day had 6.3 L removed and he said he felt much relieved after this. Overnight had IV albumin given The patient is pending for potiental intervention to adress his TIPS malfunction Carlos Raman
[2018-08-11] MEDS ORDERED: Albumin Human 25% (12.5 gm/50 ml) IV ONE ×2 (11:30→20:00)
[2018-08-11] MEDS ORDERED: Propofol 10 mg/ml Inj (20 ML) ONE (14:51)
[2018-08-11] MEDS ORDERED: Midazolam 2 MG/2 ML VIAL ONE (14:52)
[2018-08-11] MEDS ORDERED: Lidocaine 2% MPF (5 ml) Inj ONE (14:56)
--- NOTE | 2018-08-11 15:29 | PCM.SURG1 ---
Surgeon's Initial Post Op Note - Surgeon's Notes Surgeon: Robert Rose MD Procurement Manager: NONE Type of Anesthesia: IV Sedation, Local Pre-Operative Diagnosis: TIPS failure, ascites, cirrhosis Operative Findings: Hepatic venogram showed TIPS in middle hepatic vein. TIPS is occluded. Attempts to canalize the TIPS were not successful. Post-Operative Diagnosis: TIPS failure, ascites, cirrhosis Operation Performed: hepatic venogram, tips evaluation Specimen/Specimens Removed: none Estimated Blood Loss: EBL {In ML}: 3 Blood Products Given: N/A Drains Used: No Drains Post-Op Condition: Fair Date of Surgery/Procedure: 08/11/18 Time of Surgery/Procedure: 15:25
[2018-08-12 07:36] LABS: BASO # 0.1 K/uL (0.0-0.2); BASO % 1.2 % (0.0-2.0); EOS # 0.1 K/uL (0.0-0.7); EOS % 3.1 % (0.0-4.0); HEMOGLOBIN 13.1 g/dL (12.0-18.0); LYMPH # 0.8 K/uL (1.0-4.3); LYMPH % 18.5 % (20.0-40.0); MEAN CELL VOLUME 88.3 fL (80.0-94.0); MEAN CORPUSCULAR HEMOGLOBIN 29.2 pg (27.0-31.0); MEAN PLATELET VOLUME 10.1 fL (7.2-11.7); MONO # 0.6 K/uL (0.0-0.8); MONO % 13.2 % (0.0-10.0); NEUT # 2.9 K/uL (1.8-7.0); NRBC % 0.1 % (0.0-2.0); RBC 4.5 Mil/uL (4.40-5.90); RED CELL DISTRIBUTION WIDTH 17.8 % (11.5-14.5); WHITE BLOOD COUNT 4.5 K/uL (4.8-10.8)
[2018-08-12 07:53] LABS: ALBUMIN 2.8 g/dL (3.5-5.0); ALT/SGPT 27 U/L (21-72); AST/SGOT 70 U/L (17-59); BLOOD UREA NITROGEN 12 mg/dL (9-20); GFR NON-AFRICAN AMERICAN > 60
[2018-08-12] MEDS: Multiple Vitamins Tab PO SCH (09:09)
--- NOTE | 2018-08-12 11:26 | CP.PCM.PN ---
<Hi Alfredo - Last Filed: 08/12/18 12:41> Subjective - Date & Time of Evaluation Date of Evaluation: 08/12/18 Time of Evaluation: 10:00 - Subjective Subjective: Medicine progress note for Dr. Raman Pt seen and examined at bedside. Pt is resting comfortably. Continues to complain of abdominal pressure and distension. Pressure pain in the scrotum, umbilicus and groin areas are unchanged. Denies fever, sweats, chest pain, sob, n/d/v, headache, dizziness, numbness or tingling, visual disturbances, pain at paracentesis site. Objective - Vital Signs/Intake and Output Vital Signs (last 24 hours): Temp Pulse Resp BP Pulse Ox 97.8 F 56 L 20 121/62 95 08/12/18 08:00 08/12/18 08:00 08/12/18 08:00 08/12/18 09:09 08/12/18 08:00 - Medications Medications: Current Medications Folic Acid (Folic Acid) 1 mg PO DAILY [facility] Last Admin: 08/12/18 09:10 Dose: 1 mg Furosemide (Lasix) 20 mg PO BID [facility] Last Admin: 08/12/18 09:09 Dose: 20 mg Lorazepam (Ativan) 1 mg IVP Q4H PRN PRN Reason: Symptoms of alcohol withdrawl Multivitamins (Hexavitamin) 1 tab PO DAILY [facility] Last Admin: 08/12/18 09:09 Dose: 1 tab Pantoprazole Sodium (Protonix Inj) 40 mg IVP DAILY [facility] Last Admin: 08/12/18 09:09 Dose: 40 mg Propranolol HCl (Inderal) 20 mg PO BID [facility] Last Admin: 08/12/18 09:10 Dose: 20 mg Spironolactone (Aldactone) 25 mg PO BID [facility] Last Admin: 08/12/18 09:09 Dose: 25 mg Thiamine HCl (Vitamin B1 Tab) 100 mg PO DAILY [facility] Last Admin: 08/12/18 09:10 Dose: 100 mg - Labs Labs: 08/12/18 07:27 08/12/18 07:27 PT 13.6 SECONDS (9.7-12.2) H 08/09/18 16:30 INR 1.2 08/09/18 16:30 APTT 32 SECONDS (21-34) 08/09/18 16:30 - Additional Findings Additional findings: - Constitutional Appears: Non-toxic, No Acute Distress - Head Exam Head Exam: ATRAUMATIC, NORMAL INSPECTION - Eye Exam Eye Exam: EOMI, Scleral icterus - ENT Exam ENT Exam: Mucous Membranes Moist - Respiratory Exam Respiratory Exam: Decreased Breath Sounds, Clear to Ausculation Bilateral. absent: Rales, Rhonchi, Wheezes, Respiratory Distress - Cardiovascular Exam Cardiovascular Exam: REGULAR RHYTHM, +S1, +S2. absent: Tachycardia, Diastolic murmur, Irregular Rhythm, JVD, Murmur - GI/Abdominal Exam GI & Abdominal Exam: Distended (improved), Soft, Tenderness (minimal tenderness in all quadrants), Normal Bowel Sounds, Organomegaly, (+) umbilical hernia, reducible, nontender, nonerythematous. absent: Firm, Rigid Additional comments: (+) ascites (+) abdominal veins, spider angiomas - Exam Exam: Uncircumcised. (+) right inguinal hernia, minimally tender, no erythema, no warmth; (+) scrotal swelling, with minimal erythema, no warmth, minimally tender - Extremities Exam Extremities Exam: Normal Capillary Refill. absent: Calf Tenderness, tremors, pedal edema - Back Exam Back Exam: NORMAL INSPECTION. absent: rash noted - Neurological Exam Neurological Exam: Alert, Awake - Psychiatric Exam Psychiatric exam: Normal Affect, Normal Mood - Skin Skin Exam: Dry, Jaundice, Warm Assessment and Plan - Assessment and Plan (Free Text) Assessment: 67 year old male with PMHx of liver cirrhosis with TIPS and alcohol use disorder admitted for abdominal pain due to ascites. Pt with abdominal US in 2014 that shows occlusion of TIPS stent. Plan: Abdominal pain Liver cirrhosis with ascites secondary to portal hypertension with hx of TIPS procedure Hx of varices, with bands CT abdomen: Large amount of ascites with cirrhotic liver. TIPS catheter within liver. Splenomegaly. See full report. Abd US 2015: TIPS stent occlusion is seen. Tbili is downtrending (3.4) Albumin is stable at 2.8 s/p albumin 25% 12.5g x5 Ammonia less than 9 IR, Dr. Rose, consulted for evaluation of replacing TIPS and paracentesis /: 6300mL of clear fluid aspirated from paracentesis. WBC is 42. RBC is 93, Total neutrophil is 10.92, Lymphocyte count is 52%, Macrophage/Monocyte count is 22% Fluid Albumin, LDH, Glucose, culture pending Less likely SBP as pt without fever, leukocytosis and low ascitic fluid total absolute neutrophil count 4/3: TIPS stent was occluded, unable to be cannulated Spironolactone 25mg PO BID Propranolol 20mg PO BID Lasix 20 mg PO BID Fluid restriction Hepatobiliary surgery, Dr. Zamora, consulted. Child Rizo score is 10, Meld-Na score is 17 Transaminitis Secondary to liver cirrhosis and alcoholism AST/ALT/ALP was 121/44/169 on admission; downtrending Continue to monitor Alcohol use disorder EtOH 203 on admission Folic Acid 1mg PO daily Ativan 1mg IVP Q4H PRN withdrawal sx Thiamine 100mg PO daily Multivitamin CIWA protocol Multiple hernias Umbilical hernia, bilateral inguinal hernias Abdominal CT confirms fluid filled hernias (see full report) / Lactate is 1.4 Pt is moving his bowels without difficulty and urinating with difficulty General surgery, Dr. Little, consulted. Hematuria, resolved UA shows 1+ blood on admission H/H is stable Continue to monitor PPx Protonix 40 mg IVP daily SCDs, chemical VTE ppx on hold due to planned procedure HHD <Carlos Raman H - Last Filed: 08/12/18 14:54> Objective - Vital Signs/Intake and Output Vital Signs (last 24 hours): Temp Pulse Resp BP Pulse Ox 97.8 F 56 L 20 121/62 95 08/12/18 08:00 08/12/18 08:00 08/12/18 08:00 08/12/18 09:09 08/12/18 08:00 - Medications Medications: Current Medications Folic Acid (Folic Acid) 1 mg PO DAILY [facility] Last Admin: 08/12/18 09:10 Dose: 1 mg Furosemide (Lasix) 20 mg PO BID [facility] Last Admin: 08/12/18 09:09 Dose: 20 mg Lorazepam (Ativan) 1 mg IVP Q4H PRN PRN Reason: Symptoms of alcohol withdrawl Multivitamins (Hexavitamin) 1 tab PO DAILY [facility] Last Admin: 08/12/18 09:09 Dose: 1 tab Pantoprazole Sodium (Protonix Inj) 40 mg IVP DAILY [facility] Last Admin: 08/12/18 09:09 Dose: 40 mg Propranolol HCl (Inderal) 20 mg PO BID [facility] Last Admin: 08/12/18 09:10 Dose: 20 mg Spironolactone (Aldactone) 25 mg PO BID [facility] Last Admin: 08/12/18 09:09 Dose: 25 mg Thiamine HCl (Vitamin B1 Tab) 100 mg PO DAILY [facility] Last Admin: 08/12/18 09:10 Dose: 100 mg - Labs Labs: 08/12/18 07:27 08/12/18 07:27 PT 13.6 SECONDS (9.7-12.2) H 08/09/18 16:30 INR 1.2 08/09/18 16:30 APTT 32 SECONDS (21-34) 08/09/18 16:30 Attending/Attestation - Attestation I have personally seen and examined this patient.: Yes I have fully participated in the care of the patient.: Yes I have reviewed all pertinent clinical information, including history, physical exam and plan: Yes Notes (Text): 08/12/18 14:41 Medical attending: Patient was seen and exmained by me as well with the medical parasitologist. Agree with the above note by the resident The patient was not in any acute distress this morning when we came and saw him. The patient as previously mentioned had 6+ Liters removed and also IV albumin The IR attempt to see if anything could be done for the TIPS was not successful The patient this morning on further exam was concerned about the hernias - he has both ventral as well as inguinal hernia. He reports they are tender from time to time. After the removal of the ascities fluid the hernias are now much more readily apparent. Carlos Raman
--- NOTE | 2018-08-12 11:34 | CP.PCM.CON ---
History of Present Illness - History of Present Illness History of Present Illness: Consult Note for Dr. Little HPI: Patient is a 67 year old male with history of liver cirrhosis and TIPS who initially presented for abdominal distention, hematuria and bloody stools. He had paracentesis with Dr. Rose with removal of 6300cc. TIPS occluded, IR attempt to canalize was unsuccessful. Surgery consulted for umbilical and inguinal hernias. He states that he first noticed these hernias about 3 weeks ago, denies any heavy lifting. He states he initially had nausea and vomiting 2 weeks ago, that has resolved, however has persistent loose stools. PMH: liver cirrhosis with TIPS, alcohol use disorder, blood clot in brain? PSH: TIPS [address] Sukhwinder Herzog, esophageal bands Home meds: none Allergies: NKDA social hx: former smoker about 30 years ago, (+) alcohol use, denies drug use. Family hx: non contributory Review of Systems - Constitutional Constitutional: Fever. absent: Chills - EENT Nose/Mouth/Throat: absent: Sore Throat - Cardiovascular Cardiovascular: absent: Chest Pain, Dyspnea - Respiratory Respiratory: Cough - Gastrointestinal Gastrointestinal: Diarrhea, Nausea, Vomiting - Psychiatric Psychiatric: absent: Anxiety, Depression Past Patient History - Past Social History Smoking Status: Never Smoked - MUSCULOSKELETAL/RHEUMATOLOGICAL Hx Falls: No - GASTROINTESTINAL Other/Comment: Cirrhosis - GENITOURINARY/GYNECOLOGICAL Hx Prostate Problems: Yes - PSYCHIATRIC Hx Depression: Yes Hx Substance Use: No - SURGICAL HISTORY Hx Liver Transplant: Yes Other/Comment: wall stent implant - ANESTHESIA Hx Anesthesia: Yes Hx Anesthesia Reactions: No Meds Allergies/Adverse Reactions: Allergies Allergy/AdvReac Type Severity Reaction Status Date / Time No Known Allergies Allergy Verified 12/15/12 21:54 - Medications Medications: Current Medications Folic Acid (Folic Acid) 1 mg PO DAILY [facility] Last Admin: 08/12/18 09:10 Dose: 1 mg Furosemide (Lasix) 20 mg PO BID [facility] Last Admin: 08/12/18 09:09 Dose: 20 mg Lorazepam (Ativan) 1 mg IVP Q4H PRN PRN Reason: Symptoms of alcohol withdrawl Multivitamins (Hexavitamin) 1 tab PO DAILY [facility] Last Admin: 08/12/18 09:09 Dose: 1 tab Pantoprazole Sodium (Protonix Inj) 40 mg IVP DAILY [facility] Last Admin: 08/12/18 09:09 Dose: 40 mg Propranolol HCl (Inderal) 20 mg PO BID [facility] Last Admin: 08/12/18 09:10 Dose: 20 mg Spironolactone (Aldactone) 25 mg PO BID [facility] Last Admin: 08/12/18 09:09 Dose: 25 mg Thiamine HCl (Vitamin B1 Tab) 100 mg PO DAILY [facility] Last Admin: 08/12/18 09:10 Dose: 100 mg Physical Exam - Constitutional Appears: Well, No Acute Distress - Head Exam Head Exam: ATRAUMATIC, NORMOCEPHALIC - Eye Exam Eye Exam: EOMI, PERRL - ENT Exam ENT Exam: Mucous Membranes Moist - Neck Exam Neck exam: Positive for: Full Rom - Respiratory Exam Respiratory Exam: NORMAL BREATHING PATTERN - Cardiovascular Exam Cardiovascular Exam: REGULAR RHYTHM - GI/Abdominal Exam GI & Abdominal Exam: Distended, Hernia (r) Additional comments: Reducible umbilical hernia nontender Bilateral incarcerated inguinal hernia with scrotal swelling, not strangulated - Extremities Exam Extremities exam: Positive for: pedal pulses present. Negative for: calf tenderness Results - Vital Signs Recent Vital Signs: Last Vital Signs Temp 97.8 F 08/12/18 08:00 Pulse 56 L 08/12/18 08:00 Resp 20 08/12/18 08:00 BP 121/62 08/12/18 09:09 Pulse Ox 95 08/12/18 08:00 - Labs Result Diagrams: 08/12/18 07:27 08/12/18 07:27 Labs: Laboratory Results - last 24 hr 08/12/18 08/12/18 07:27 07:27 WBC 4.5 L RBC 4.50 Hgb 13.1 Hct 39.7 MCV 88.3 MCH 29.2 MCHC 33.0 RDW 17.8 H Plt Count 125 L MPV 10.1 Neut % (Auto) 64.0 Lymph % (Auto) 18.5 L Emanuel % (Auto) 13.2 H Eos % (Auto) 3.1 Baso % (Auto) 1.2 Neut # (Auto) 2.9 Lymph # (Auto) 0.8 L Emanuel # (Auto) 0.6 Eos # (Auto) 0.1 Baso # (Auto) 0.1 Sodium 133 Potassium 3.7 Chloride 101 Carbon Dioxide 26 Anion Gap 10 BUN 12 Creatinine 0.5 L Est GFR ( Amer) > 60 Est GFR (Non-Af Amer) > 60 Random Glucose 99 Calcium 8.0 L Phosphorus 3.0 Magnesium 1.7 Total Bilirubin 3.4 H AST 70 H ALT 27 Alkaline Phosphatase 115 Total Protein 5.6 L Albumin 2.8 L Globulin 2.8 Albumin/Globulin Ratio 1.0 Assessment & Plan - Assessment and Plan (Free Text) Assessment: 67 year old male with umbilical hernia and bilateral inguinal hernias Plan: CT reveals fluid within umbilical hernia. Bilateral inguinal hernias containing fluid which extends into the scrotum. Bowel loops within normal limits without evidence of obstruction. Plan for ascites control prior to surgical intervention Further recs from Dr. Sidney Reyna, PGY1 Case discussed with Dr. Little
--- NOTE | 2018-08-12 12:09 | CP.PCM.CON ---
<Radha Reyna - Last Filed: 08/12/18 13:15> History of Present Illness - History of Present Illness History of Present Illness: Consult Note for Dr. Cortez HPI: Patient is a 67 year old male with history of liver cirrhosis and TIPS who initially presented for abdominal distention, hematuria and bloody stools. He had paracentesis with Dr. Rose with removal of 6300cc. TIPS occluded, IR attempt to canalize was unsuccessful. Hepatobiliary surgery consulted for TIPS occlusion. PMH: liver cirrhosis with TIPS, alcohol use disorder, blood clot in brain? PSH: TIPS [address] Sukhwinder Herzog, esophageal bands Home meds: none Allergies: NKDA social hx: former smoker about 30 years ago, alcohol use, denies drug use. Family hx: non contributory Past Patient History - Past Social History Smoking Status: Never Smoked - MUSCULOSKELETAL/RHEUMATOLOGICAL Hx Falls: No - GASTROINTESTINAL Other/Comment: Cirrhosis - GENITOURINARY/GYNECOLOGICAL Hx Prostate Problems: Yes - PSYCHIATRIC Hx Depression: Yes Hx Substance Use: No - SURGICAL HISTORY Hx Liver Transplant: Yes Other/Comment: wall stent implant - ANESTHESIA Hx Anesthesia: Yes Hx Anesthesia Reactions: No Meds Allergies/Adverse Reactions: Allergies Allergy/AdvReac Type Severity Reaction Status Date / Time No Known Allergies Allergy Verified 12/15/12 21:54 - Medications Medications: Current Medications Folic Acid (Folic Acid) 1 mg PO DAILY [facility] Last Admin: 08/12/18 09:10 Dose: 1 mg Furosemide (Lasix) 20 mg PO BID [facility] Last Admin: 08/12/18 09:09 Dose: 20 mg Lorazepam (Ativan) 1 mg IVP Q4H PRN PRN Reason: Symptoms of alcohol withdrawl Multivitamins (Hexavitamin) 1 tab PO DAILY [facility] Last Admin: 08/12/18 09:09 Dose: 1 tab Pantoprazole Sodium (Protonix Inj) 40 mg IVP DAILY [facility] Last Admin: 08/12/18 09:09 Dose: 40 mg Propranolol HCl (Inderal) 20 mg PO BID [facility] Last Admin: 08/12/18 09:10 Dose: 20 mg Spironolactone (Aldactone) 25 mg PO BID [facility] Last Admin: 08/12/18 09:09 Dose: 25 mg Thiamine HCl (Vitamin B1 Tab) 100 mg PO DAILY [facility] Last Admin: 08/12/18 09:10 Dose: 100 mg Physical Exam - Constitutional Appears: No Acute Distress - Head Exam Head Exam: ATRAUMATIC, NORMOCEPHALIC - Eye Exam Eye Exam: Scleral icterus - ENT Exam ENT Exam: Mucous Membranes Moist - Neck Exam Neck exam: Positive for: Full Rom - Respiratory Exam Respiratory Exam: NORMAL BREATHING PATTERN - Cardiovascular Exam Cardiovascular Exam: REGULAR RHYTHM, +S1, +S2 - GI/Abdominal Exam GI & Abdominal Exam: Distended, Hernia - Extremities Exam Extremities exam: Positive for: pedal pulses present. Negative for: calf tenderness, pedal edema - Back Exam Back exam: absent: CVA tenderness (L), CVA tenderness (R) - Neurological Exam Neurological exam: Alert, Oriented x3 Results - Vital Signs Recent Vital Signs: Last Vital Signs Temp 97.8 F 08/12/18 08:00 Pulse 56 L 08/12/18 08:00 Resp 20 08/12/18 08:00 BP 121/62 08/12/18 09:09 Pulse Ox 95 08/12/18 08:00 - Labs Result Diagrams: 08/12/18 07:27 08/12/18 07:27 Labs: Laboratory Results - last 24 hr 08/12/18 08/12/18 07:27 07:27 WBC 4.5 L RBC 4.50 Hgb 13.1 Hct 39.7 MCV 88.3 MCH 29.2 MCHC 33.0 RDW 17.8 H Plt Count 125 L MPV 10.1 Neut % (Auto) 64.0 Lymph % (Auto) 18.5 L [place] % (Auto) 13.2 H Eos % (Auto) 3.1 Baso % (Auto) 1.2 Neut # (Auto) 2.9 Lymph # (Auto) 0.8 L [place] # (Auto) 0.6 Eos # (Auto) 0.1 Baso # (Auto) 0.1 Sodium 133 Potassium 3.7 Chloride 101 Carbon Dioxide 26 Anion Gap 10 BUN 12 Creatinine 0.5 L Est GFR ( Amer) > 60 Est GFR (Non-Af Amer) > 60 Random Glucose 99 Calcium 8.0 L Phosphorus 3.0 Magnesium 1.7 Total Bilirubin 3.4 H AST 70 H ALT 27 Alkaline Phosphatase 115 Total Protein 5.6 L Albumin 2.8 L Globulin 2.8 Albumin/Globulin Ratio 1.0 Assessment & Plan - Assessment and Plan (Free Text) Assessment: 67 year old male with liver cirrhosis status post TIPS, with occlusion of TIPS <Balwinder Velázquez - Last Filed: 08/13/18 08:03> Meds - Medications Medications: Current Medications Folic Acid (Folic Acid) 1 mg PO DAILY [facility] Last Admin: 08/12/18 09:10 Dose: 1 mg Furosemide (Lasix) 20 mg PO BID [facility] Last Admin: 08/12/18 17:36 Dose: 20 mg Lorazepam (Ativan) 1 mg IVP Q4H PRN PRN Reason: Symptoms of alcohol withdrawl Multivitamins (Hexavitamin) 1 tab PO DAILY [facility] Last Admin: 08/12/18 09:09 Dose: 1 tab Pantoprazole Sodium (Protonix Inj) 40 mg IVP DAILY [facility] Last Admin: 08/12/18 09:09 Dose: 40 mg Propranolol HCl (Inderal) 20 mg PO BID [facility] Last Admin: 08/12/18 17:38 Dose: 20 mg Spironolactone (Aldactone) 25 mg PO BID [facility] Last Admin: 08/12/18 17:36 Dose: 25 mg Thiamine HCl (Vitamin B1 Tab) 100 mg PO DAILY [facility] Last Admin: 08/12/18 09:10 Dose: 100 mg Results - Vital Signs Recent Vital Signs: Last Vital Signs Temp 98 F 08/12/18 23:41 Pulse 62 08/12/18 23:41 Resp 20 08/12/18 23:41 BP 115/72 08/12/18 23:41 Pulse Ox 96 08/12/18 23:41 - Labs Result Diagrams: 08/12/18 07:27 08/12/18 07:27 Labs: Laboratory Results - last 24 hr 08/12/18 07:27 Sodium 133 Potassium 3.7 Chloride 101 Carbon Dioxide 26 Anion Gap 10 BUN 12 Creatinine 0.5 L Est GFR ( Amer) > 60 Est GFR (Non-Af Amer) > 60 Random Glucose 99 Calcium 8.0 L Phosphorus 3.0 Magnesium 1.7 Total Bilirubin 3.4 H AST 70 H ALT 27 Alkaline Phosphatase 115 Total Protein 5.6 L Albumin 2.8 L Globulin 2.8 Albumin/Globulin Ratio 1.0 Assessment & Plan - Assessment and Plan (Free Text) Assessment: All medical record entries made by the jazmin cedillo were at my direction. I have reviewed the chart and agree that the record accurately reflects my personal performance of the history, physical exam, medical decision making. Patient with occluded TIPSS through middle hepatic vein. Now has ascites, though maybe using significant alcohol. Patient needs to be abstinent to determine if ascites will improve as elements of alcoholic hepatitis resolve. Should be on salt restriction, i.e., do not use normal saline in IV fluids. Would give Vit E 800 IU daily. Can slowly increase diuretics, being mindful of creatinine. If hasn't had a recent upper endoscopy, would consult GI to perform. If no significant varices, DC propanolol, in view of asctes. If varices, they should banded If no recent echo of the heart, would repeat to rule out pulmonary hypertension.
[2018-08-12 23:44] VITALS: O2SAT 96
--- NOTE | 2018-08-13 06:56 | CP.PCM.PN ---
Subjective - Date & Time of Evaluation Date of Evaluation: 08/13/18 Time of Evaluation: 06:55 - Subjective Subjective: PGY-1 Medicine Progress Note for Dr. Raman Objective - Vital Signs/Intake and Output Vital Signs (last 24 hours): Temp Pulse Resp BP Pulse Ox 98 F 62 20 115/72 96 08/12/18 23:41 08/12/18 23:41 08/12/18 23:41 08/12/18 23:41 08/12/18 23:41 Intake and Output: 08/12/18 08/13/18 18:59 06:59 Intake Total 300 540 Balance 300 540 - Medications Medications: Current Medications Folic Acid (Folic Acid) 1 mg PO DAILY [facility] Last Admin: 08/12/18 09:10 Dose: 1 mg Furosemide (Lasix) 20 mg PO BID [facility] Last Admin: 08/12/18 17:36 Dose: 20 mg Lorazepam (Ativan) 1 mg IVP Q4H PRN PRN Reason: Symptoms of alcohol withdrawl Multivitamins (Hexavitamin) 1 tab PO DAILY [facility] Last Admin: 08/12/18 09:09 Dose: 1 tab Pantoprazole Sodium (Protonix Inj) 40 mg IVP DAILY [facility] Last Admin: 08/12/18 09:09 Dose: 40 mg Propranolol HCl (Inderal) 20 mg PO BID [facility] Last Admin: 08/12/18 17:38 Dose: 20 mg Spironolactone (Aldactone) 25 mg PO BID [facility] Last Admin: 08/12/18 17:36 Dose: 25 mg Thiamine HCl (Vitamin B1 Tab) 100 mg PO DAILY [facility] Last Admin: 08/12/18 09:10 Dose: 100 mg - Labs Labs: 08/12/18 07:27 08/12/18 07:27 PT 13.6 SECONDS (9.7-12.2) H 08/09/18 16:30 INR 1.2 08/09/18 16:30 APTT 32 SECONDS (21-34) 08/09/18 16:30
[2018-08-13 08:03] LABS: BASO % 0.5 % (0.0-2.0); EOS # 0.2 K/uL (0.0-0.7); EOS % 4.3 % (0.0-4.0); HEMOGLOBIN 13.1 g/dL (12.0-18.0); LYMPH # 0.9 K/uL (1.0-4.3); LYMPH % 20.7 % (20.0-40.0); MEAN CELL VOLUME 89.2 fL (80.0-94.0); MEAN CORPUSCULAR HEMOGLOBIN 28.9 pg (27.0-31.0); MEAN CORPUSCULAR HGB CONC 32.4 g/dL (33.0-37.0); MONO # 0.7 K/uL (0.0-0.8); MONO % 15.9 % (0.0-10.0); NEUT # 2.4 K/uL (1.8-7.0); NEUT % 58.6 % (50.0-75.0); NRBC % 0.2 % (0.0-2.0); RBC 4.53 Mil/uL (4.40-5.90); RED CELL DISTRIBUTION WIDTH 17.5 % (11.5-14.5); WHITE BLOOD COUNT 4.2 K/uL (4.8-10.8)
--- NOTE | 2018-08-13 08:16 | CP.PCM.PN ---
<Carol Matson - Last Filed: 08/13/18 08:30> Subjective - Date & Time of Evaluation Date of Evaluation: 08/13/18 Time of Evaluation: 07:20 - Subjective Subjective: HPB progress note for Dr. Cortez Patient seen and examined this am at bedside. States he is feeling fairly well. Patient denies any pain at hernia sites. Patient is passing gas and having BM. Patient otherwise denies CHANDLER, CP, SOB, dysuria, stool changes and extremity pain/weakenss. Objective - Vital Signs/Intake and Output Vital Signs (last 24 hours): Temp Pulse Resp BP Pulse Ox 98 F 62 20 115/72 96 08/12/18 23:41 08/12/18 23:41 08/12/18 23:41 08/12/18 23:41 08/12/18 23:41 Intake and Output: 08/13/18 08/13/18 06:59 18:59 Intake Total 540 Balance 540 - Medications Medications: Current Medications Folic Acid (Folic Acid) 1 mg PO DAILY [facility] Last Admin: 08/12/18 09:10 Dose: 1 mg Furosemide (Lasix) 20 mg PO BID [facility] Last Admin: 08/12/18 17:36 Dose: 20 mg Lorazepam (Ativan) 1 mg IVP Q4H PRN PRN Reason: Symptoms of alcohol withdrawl Multivitamins (Hexavitamin) 1 tab PO DAILY [facility] Last Admin: 08/12/18 09:09 Dose: 1 tab Pantoprazole Sodium (Protonix Inj) 40 mg IVP DAILY [facility] Last Admin: 08/12/18 09:09 Dose: 40 mg Propranolol HCl (Inderal) 20 mg PO BID [facility] Last Admin: 08/12/18 17:38 Dose: 20 mg Spironolactone (Aldactone) 25 mg PO BID [facility] Last Admin: 08/12/18 17:36 Dose: 25 mg Thiamine HCl (Vitamin B1 Tab) 100 mg PO DAILY [facility] Last Admin: 08/12/18 09:10 Dose: 100 mg - Labs Labs: 08/13/18 07:52 08/12/18 07:27 PT 13.6 SECONDS (9.7-12.2) H 08/09/18 16:30 INR 1.2 08/09/18 16:30 APTT 32 SECONDS (21-34) 08/09/18 16:30 - Constitutional Appears: Well, Non-toxic, No Acute Distress, Chronically Ill - Head Exam Head Exam: ATRAUMATIC, NORMOCEPHALIC - Eye Exam Eye Exam: EOMI - ENT Exam ENT Exam: Mucous Membranes Moist - Respiratory Exam Respiratory Exam: NORMAL BREATHING PATTERN - Cardiovascular Exam Cardiovascular Exam: REGULAR RHYTHM - GI/Abdominal Exam GI & Abdominal Exam: Distended (gross ascites), Soft, Hernia. absent: Guarding, Tenderness, Rebound - Extremities Exam Extremities Exam: absent: Calf Tenderness, Pedal Edema - Neurological Exam Neurological Exam: Alert, Awake, Oriented x3 - Psychiatric Exam Psychiatric exam: Normal Affect, Normal Mood - Skin Skin Exam: Dry, Intact, Normal Color, Warm Assessment and Plan - Assessment and Plan (Free Text) Assessment: 67 yr old male with ETOH Liver cirrhosis s/p TIPS procedure in 2005 now occluded with failed attempt at IR recannalization Plan: - recommend ETOH cessation and counseling - Medical optimization with spironolactone and Lasix - recommend salt restriction - recommend reattempt of TIPS recannalization with IR after optimization - will consider surgical intervention if this fails - will continue to follow - discussed with Dr. Fam, PGY 1 <Balwinder Velázquez - Last Filed: 08/13/18 19:40> Objective - Vital Signs/Intake and Output Vital Signs (last 24 hours): Temp Pulse Resp BP Pulse Ox 97.8 F 73 20 116/69 96 08/13/18 08:28 08/13/18 08:28 08/13/18 08:28 08/13/18 09:39 08/13/18 08:28 Intake and Output: 08/13/18 08/14/18 18:59 06:59 Intake Total 300 Balance 300 - Labs Labs: 08/13/18 07:52 08/13/18 07:52 PT 14.6 SECONDS (9.7-12.2) H 08/13/18 11:41 INR 1.3 08/13/18 11:41 APTT 32 SECONDS (21-34) 08/13/18 11:41 Assessment and Plan - Assessment and Plan (Free Text) Plan: All medical record entries made by the resident were at my direction. I have reviewed the chart and agree that the record accurately reflects my personal performance of the history, physical exam, medical decision making. Will contact patient for outpatient follow up
[2018-08-13 08:30] VITALS: BP 116/69; PULSE 73; TEMP 97.8
[2018-08-13 08:31] LABS: ALBUMIN 2.7 g/dL (3.5-5.0); ALT/SGPT 28 U/L (21-72); AST/SGOT 73 U/L (17-59); BLOOD UREA NITROGEN 16 mg/dL (9-20); CALCIUM 8.1 mg/dl (8.6-10.4); GFR NON-AFRICAN AMERICAN > 60
[2018-08-13] MEDS: Multiple Vitamins Tab PO SCH (09:34)
--- NOTE | 2018-08-13 11:17 | CP.PCM.DIS ---
<EricArya - Last Filed: 08/13/18 11:25> Provider - Provider Date of Admission: 08/09/18 17:47 Attending physician: Gallito Tang MD Consults: 08/10/18 00:50 Physician Consult Routine Comment: Consulting Provider: Robert Rose Consulting Physician: Robert Rose Reason for Consult: Malfunctioning TIPS 08/12/18 10:22 General Surgery Consult Routine Comment: Consulting Provider: Juan Pablo Little Consulting Physician: Juan Pablo Little Reason for Consult: umbilical, bilateral inguinal hernia Physician Consult Routine Comment: Consulting Provider: Balwinder Velázquez Consulting Physician: Balwinder Velázquez Reason for Consult: liver cirrhosis, s/p TIPS 2005 with occlusion Time Spent in preparation of Discharge (in minutes): 40 Diagnosis - Discharge Diagnosis (1) Ascites Status: Acute (2) Alcohol abuse Status: Acute Hospital Course - Lab Results Lab Results: Micro Results 08/10/18 21:14 Ascitic Fluid Gram Stain - Final 08/10/18 21:14 Ascitic Fluid Body Fluid Culture - Preliminary NO GROWTH AFTER 3 DAYS 08/10/18 21:14 Abdominal Fluid Anaerobic Culture - Final NO ANAEROBES ISOLATED. 08/10/18 21:14 Ascitic Fluid Fungal Culture - Preliminary Most Recent Lab Values WBC 4.2 K/uL (4.8-10.8) L 08/13/18 07:52 RBC 4.53 Mil/uL (4.40-5.90) 08/13/18 07:52 Hgb 13.1 g/dL (12.0-18.0) 08/13/18 07:52 Hct 40.4 % (35.0-51.0) 08/13/18 07:52 MCV 89.2 fL (80.0-94.0) 08/13/18 07:52 MCH 28.9 pg (27.0-31.0) 08/13/18 07:52 MCHC 32.4 g/dL (33.0-37.0) L 08/13/18 07:52 RDW 17.5 % (11.5-14.5) H 08/13/18 07:52 Plt Count 130 K/uL (130-400) 08/13/18 07:52 MPV 10.0 fL (7.2-11.7) 08/13/18 07:52 Neut % (Auto) 58.6 % (50.0-75.0) 08/13/18 07:52 Lymph % (Auto) 20.7 % (20.0-40.0) 08/13/18 07:52 [place] % (Auto) 15.9 % (0.0-10.0) H 08/13/18 07:52 Eos % (Auto) 4.3 % (0.0-4.0) H 08/13/18 07:52 Baso % (Auto) 0.5 % (0.0-2.0) 08/13/18 07:52 Neut # (Auto) 2.4 K/uL (1.8-7.0) 08/13/18 07:52 Lymph # (Auto) 0.9 K/uL (1.0-4.3) L 08/13/18 07:52 [place] # (Auto) 0.7 K/uL (0.0-0.8) 08/13/18 07:52 Eos # (Auto) 0.2 K/uL (0.0-0.7) 08/13/18 07:52 Baso # (Auto) 0.0 K/uL (0.0-0.2) 08/13/18 07:52 Differential Comment 08/11/18 06:27 PT 13.6 SECONDS (9.7-12.2) H 08/09/18 16:30 INR 1.2 08/09/18 16:30 APTT 32 SECONDS (21-34) 08/09/18 16:30 Sodium 133 mmol/L (132-148) 08/13/18 07:52 Potassium 4.0 mmol/L (3.6-5.2) 08/13/18 07:52 Chloride 100 mmol/L (98-107) 08/13/18 07:52 Carbon Dioxide 30 mmol/L (22-30) 08/13/18 07:52 Anion Gap 8 (10-20) L 08/13/18 07:52 BUN 16 mg/dL (9-20) 08/13/18 07:52 Creatinine 0.7 mg/dL (0.8-1.5) L 08/13/18 07:52 Est GFR ( Amer) > 60 08/13/18 07:52 Est GFR (Non-Af Amer) > 60 08/13/18 07:52 POC Glucose (mg/dL) 243 mg/dL (65-110) H 08/09/18 21:37 Random Glucose 105 mg/dL (75-110) 08/13/18 07:52 Lactic Acid 1.4 mmol/L (0.7-2.1) 08/10/18 17:06 Calcium 8.1 mg/dl (8.6-10.4) L 08/13/18 07:52 Phosphorus 3.1 mg/dL (2.5-4.5) 08/13/18 07:52 Magnesium 1.6 mg/dL (1.6-2.3) 08/13/18 07:52 Total Bilirubin 2.3 mg/dL (0.2-1.3) H 08/13/18 07:52 Direct Bilirubin 1.9 mg/dL (0.0-0.4) H 08/11/18 06:27 AST 73 U/L (17-59) H 08/13/18 07:52 ALT 28 U/L (21-72) 08/13/18 07:52 Alkaline Phosphatase 125 U/L (38-126) 08/13/18 07:52 Ammonia < 9 umol/L (9-33) L 08/09/18 16:30 Troponin I < 0.0120 ng/mL (0.00-0.120) 08/09/18 16:30 Total Protein 5.6 g/dL (6.3-8.3) L 08/13/18 07:52 Albumin 2.7 g/dL (3.5-5.0) L 08/13/18 07:52 Globulin 2.9 gm/dL (2.2-3.9) 08/13/18 07:52 Albumin/Globulin Ratio 1.0 (1.0-2.1) 08/13/18 07:52 Lipase 98 U/L (23-300) 08/10/18 07:25 Urine Color Yellow (YELLOW) 08/09/18 17:00 Urine Clarity Clear (Clear) 08/09/18 17:00 Urine pH 5.0 (5.0-8.0) 08/09/18 17:00 Ur Specific [place] 1.011 (1.003-1.030) 08/09/18 17:00 Urine Protein Negative mg/dL (NEGATIVE) 08/09/18 17:00 Urine Glucose (UA) Normal mg/dL (Normal) 08/09/18 17:00 Urine Ketones Negative mg/dL (NEGATIVE) 08/09/18 17:00 Urine Blood 1+ (NEGATIVE) H 08/09/18 17:00 Urine Nitrate Negative (NEGATIVE) 08/09/18 17:00 Urine Bilirubin Negative (NEGATIVE) 08/09/18 17:00 Urine Urobilinogen 4.0 mg/dL (0.2-1.0) 08/09/18 17:00 Ur Leukocyte Esterase Negative [place]/uL (Negative) 08/09/18 17:00 Urine WBC (Auto) 1 /hpf (0-5) 08/09/18 17:00 Urine RBC (Auto) 3 /hpf (0-3) 08/09/18 17:00 Ur Squamous Epith Cells 1 /hpf (0-5) 08/09/18 17:00 Hyaline Casts 0-2 /lpf (0-2) 08/09/18 17:00 Fluid Source Peritoneal/ascites 08/10/18 21:13 Fluid Appearance Sl cloudy (CLEAR) 08/10/18 21:13 Fluid WBC 42.0 /mm3 (0.0-300.0) 08/10/18 21:13 Fluid RBC 93.0 /mm3 (0.0-0.0) H 08/10/18 21:13 Fluid Tot Cell Count 100 (0-0) H 08/10/18 21:13 Fluid Neutrophils 26.0 % (0-0) H 08/10/18 21:13 Fluid Lymphocytes 52.0 % (0-0) H 08/10/18 21:13 Fld Monocyte/Macrophag 22 % (0-0) H 08/10/18 21:13 Fluid Comment 08/10/18 21:13 Stool Occult Blood Negative (NEGATIVE) 08/09/18 20:31 Alcohol, Quantitative 203 mg/dl (0-10) H 08/09/18 16:30 Blood Type O POSITIVE 08/09/18 16:30 Antibody Screen Negative 08/09/18 16:30 - Hospital Course Hospital Course: HPI: Patient is a 67 year old male with past medical history of alcohol use disorder and liver cirrhosis with TIPS presents to ED for worsening abdominal distention for the past 2 weeks. Associated symptoms include abdominal pain described as pressure, testicular swelling, leg swelling, subjective fever, chills, nausea, diarrhea, flatus, melena. Patient also complains of urinary frequency, urinary retention and gross hematuria since yesterday. Patient states he has never experienced these symptoms before. Denies chest pain, palpitations, shortness of breath, cough, vomiting, constipation, hematochezia. The following is a summary of hospital course. For full detail, please refer to EMR: Abdominal pain Liver cirrhosis with ascites secondary to portal hypertension with hx of TIPS procedure Hx of varices, with bands CT abdomen: Large amount of ascites with cirrhotic liver. TIPS catheter within liver. Splenomegaly. See full report. Abd US 2015: TIPS stent occlusion is seen. Tbili is downtrending (3.4) Albumin is stable at 2.8 s/p albumin 25% 12.5g x5 Ammonia less than 9 IR, Dr. Rose, consulted for evaluation of replacing TIPS and paracentesis 4/2: 6300mL of clear fluid aspirated from paracentesis. WBC is 42. RBC is 93, Total neutrophil is 10.92, Lymphocyte count is 52%, Macrophage/Monocyte count is 22% Fluid Albumin, LDH, Glucose, culture pending Less likely SBP as pt without fever, leukocytosis and low ascitic fluid total absolute neutrophil count 4/3: TIPS stent was occluded, unable to be cannulated Spironolactone 25mg PO BID Propranolol 20mg PO BID Lasix 20 mg PO BID Fluid restriction Hepatobiliary surgery, Dr. Zamora, consulted - recommend ETOH cessation and counseling - Medical optimization with spironolactone and Lasix - recommend salt restriction - recommend reattempt of TIPS recannalization with IR after optimization - will consider surgical intervention if this fails Child Rizo score is 10, Meld-Na score is 17 Transaminitis Secondary to liver cirrhosis and alcoholism AST/ALT/ALP was 121/44/169 on admission; downtrending Continue to monitor Alcohol use disorder EtOH 203 on admission Folic Acid 1mg PO daily Ativan 1mg IVP Q4H PRN withdrawal sx Thiamine 100mg PO daily Multivitamin CIWA protocol Multiple hernias Umbilical hernia, bilateral inguinal hernias Abdominal CT confirms fluid filled hernias (see full report) 4/2 Lactate is 1.4 Pt is moving his bowels without difficulty and urinating with difficulty General surgery, Dr. Little, consulted. Hematuria, resolved UA shows 1+ blood on admission H/H is stable Continue to monitor PPx, Diet, Disposition -Protonix 40 mg IVP daily -SCDs, chemical VTE ppx on hold due to planned procedure -Diet: heart healthy diet Patient is medically stable for discharge to home, as per Dr. Raman. Patient was instructed to take all medications as currently prescribed. It was emphasized to patient the importance of complete alcohol cessation in order to attempt any potential future surgical intervention. Patient was instructed to follow up at [facility] for further monitoring and continuity of care. Patient may follow up with neurosurgical physician assistant through the clinic once medically optimized and refrained from alcohol consumption. Contact information has been provided below. Please call to [place] [address] If symptoms worsen or recur, please return to ED immediately. - Date & Time of H&P Date of H&P: 08/13/18 Time of H&P: 11:05 Discharge Exam - Head Exam Head Exam: ATRAUMATIC, NORMAL INSPECTION, NORMOCEPHALIC - Eye Exam Eye Exam: EOMI, Normal appearance, Scleral icterus (mild) - ENT Exam ENT Exam: Mucous Membranes Moist, Normal Exam - Respiratory Exam Respiratory Exam: Decreased Breath Sounds, Clear to PA & Lateral. absent: Accessory Muscle Use, Respiratory Distress - Cardiovascular Exam Cardiovascular Exam: REGULAR RHYTHM, +S1, +S2 - GI/Abdominal Exam GI & Abdominal Exam: Distended, Hernia (umbilical hernia, reducible, nontender, nonerythematous), Normal Bowel Sounds, Organomegaly, Soft Additional comments: (+) ascites (+) abdominal veins, spider angiomas - Exam Additional comments: Uncircumcised. (+) right inguinal hernia, minimally tender, no erythema, no warmth; (+) scrotal swelling, with minimal erythema, no warmth, minimally tender - Extremities Exam Extremities exam: normal capillary refill, normal inspection, pedal pulses present - Back Exam Back exam: NORMAL INSPECTION - Neurological Exam Neurological exam: Alert, CN II-XII Intact, Oriented x3 - Psychiatric Exam Psychiatric exam: Normal Affect, Normal Mood - Skin Skin Exam: Dry, Intact, Normal Color, Warm Discharge Plan - Discharge Medications Prescriptions: Folic Acid 1 mg PO DAILY #30 tab Furosemide [Lasix] 20 mg PO BID 30 Days tab Multivitamins [Hexavitamin] 1 tab PO DAILY #30 tab Propranolol [Inderal] 20 mg PO BID 30 Days tab Spironolactone [Aldactone] 25 mg PO BID 30 Days tab Thiamine [Vitamin B1 Tab] 100 mg PO DAILY #30 tab Vitamin E [Vitamin E 400 Units Cap] 800 intlu PO DAILY #30 cap - Follow Up Plan Condition: FAIR Disposition: HOME/ ROUTINE Instructions: Alcohol Abuse and Alcoholism (DC), Fluid in the Belly (Ascites) (DC), Propranolol, Spironolactone Additional Instructions: Patient is medically stable for discharge to home, as per Dr. Raman. Patient was instructed to take all medications as currently prescribed. It was emphasized to patient the importance of complete alcohol cessation in order to attempt any potential future surgical intervention. Patient was instructed to follow up at [facility] for further monitoring and continuity of care. Patient may follow up with neurosurgical physician assistant through the clinic once medically optimized and refrained from alcohol consumption. Contact information has been provided below. Please call to [place] [address] If symptoms worsen or recur, please return to ED immediately. El paciente se encuentra mdicamente estable para el florina hospitalaria, segn el Dr. Raman. Se instruy al paciente para que tomara todos los medicamentos segn lo prescrito actualmente. Se enfatiz al paciente la importancia de completar el cese del alcohol para intentar cualquier posible intervencin quirrgica futura. El paciente recibi instrucciones de realizar un seguimiento en [facility] para realizar un seguimiento y royer continuidad de la atencin. El paciente puede realizar un seguimiento con un especialista quirrgico a travs de la clnica royer vez que est mdicamente optimizado y se abstenga de consumir alcohol. La informacin de contacto se rodriguez proporcionado a continuacin. Favor de llamar para hacer royer mason. [facility] [place] [address] T[place]ono: [phone] Si los sntomas empeoran o reaparecen, regrese inmediatamente a la [place]. <Carlos Raman - Last Filed: 08/13/18 13:30> Provider - Provider Date of Admission: 08/09/18 17:47 Attending physician: Gallito Tang MD Consults: 08/10/18 00:50 Physician Consult Routine Comment: Consulting Provider: Robert Rose Consulting Physician: Robert Rose Reason for Consult: Malfunctioning TIPS 08/12/18 10:22 General Surgery Consult Routine Comment: Consulting Provider: Juan Pablo Little Consulting Physician: Juan Pablo Little Reason for Consult: umbilical, bilateral inguinal hernia Physician Consult Routine Comment: Consulting Provider: Balwinder Velázquez Consulting Physician: Balwinder Velázquez Reason for Consult: liver cirrhosis, s/p TIPS 2005 with occlusion Hospital Course - Lab Results Lab Results: Micro Results 08/10/18 21:14 Ascitic Fluid Gram Stain - Final 08/10/18 21:14 Ascitic Fluid Body Fluid Culture - Preliminary NO GROWTH AFTER 3 DAYS 08/10/18 21:14 Abdominal Fluid Anaerobic Culture - Final NO ANAEROBES ISOLATED. 08/10/18 21:14 Ascitic Fluid Fungal Culture - Preliminary Most Recent Lab Values WBC 4.2 K/uL (4.8-10.8) L 08/13/18 07:52 RBC 4.53 Mil/uL (4.40-5.90) 08/13/18 07:52 Hgb 13.1 g/dL (12.0-18.0) 08/13/18 07:52 Hct 40.4 % (35.0-51.0) 08/13/18 07:52 MCV 89.2 fL (80.0-94.0) 08/13/18 07:52 MCH 28.9 pg (27.0-31.0) 08/13/18 07:52 MCHC 32.4 g/dL (33.0-37.0) L 08/13/18 07:52 RDW 17.5 % (11.5-14.5) H 08/13/18 07:52 Plt Count 130 K/uL (130-400) 08/13/18 07:52 MPV 10.0 fL (7.2-11.7) 08/13/18 07:52 Neut % (Auto) 58.6 % (50.0-75.0) 08/13/18 07:52 Lymph % (Auto) 20.7 % (20.0-40.0) 08/13/18 07:52 [place] % (Auto) 15.9 % (0.0-10.0) H 08/13/18 07:52 Eos % (Auto) 4.3 % (0.0-4.0) H 08/13/18 07:52 Baso % (Auto) 0.5 % (0.0-2.0) 08/13/18 07:52 Neut # (Auto) 2.4 K/uL (1.8-7.0) 08/13/18 07:52 Lymph # (Auto) 0.9 K/uL (1.0-4.3) L 08/13/18 07:52 [place] # (Auto) 0.7 K/uL (0.0-0.8) 08/13/18 07:52 Eos # (Auto) 0.2 K/uL (0.0-0.7) 08/13/18 07:52 Baso # (Auto) 0.0 K/uL (0.0-0.2) 08/13/18 07:52 Differential Comment 08/11/18 06:27 PT 14.6 SECONDS (9.7-12.2) H 08/13/18 11:41 INR 1.3 08/13/18 11:41 APTT 32 SECONDS (21-34) 08/13/18 11:41 Sodium 133 mmol/L (132-148) 08/13/18 07:52 Potassium 4.0 mmol/L (3.6-5.2) 08/13/18 07:52 Chloride 100 mmol/L (98-107) 08/13/18 07:52 Carbon Dioxide 30 mmol/L (22-30) 08/13/18 07:52 Anion Gap 8 (10-20) L 08/13/18 07:52 BUN 16 mg/dL (9-20) 08/13/18 07:52 Creatinine 0.7 mg/dL (0.8-1.5) L 08/13/18 07:52 Est GFR ( Amer) > 60 08/13/18 07:52 Est GFR (Non-Af Amer) > 60 08/13/18 07:52 POC Glucose (mg/dL) 243 mg/dL (65-110) H 08/09/18 21:37 Random Glucose 105 mg/dL (75-110) 08/13/18 07:52 Lactic Acid 1.4 mmol/L (0.7-2.1) 08/10/18 17:06 Calcium 8.1 mg/dl (8.6-10.4) L 08/13/18 07:52 Phosphorus 3.1 mg/dL (2.5-4.5) 08/13/18 07:52 Magnesium 1.6 mg/dL (1.6-2.3) 08/13/18 07:52 Total Bilirubin 2.3 mg/dL (0.2-1.3) H 08/13/18 07:52 Direct Bilirubin 1.9 mg/dL (0.0-0.4) H 08/11/18 06:27 AST 73 U/L (17-59) H 08/13/18 07:52 ALT 28 U/L (21-72) 08/13/18 07:52 Alkaline Phosphatase 125 U/L (38-126) 08/13/18 07:52 Ammonia < 9 umol/L (9-33) L 08/09/18 16:30 Troponin I < 0.0120 ng/mL (0.00-0.120) 08/09/18 16:30 Total Protein 5.6 g/dL (6.3-8.3) L 08/13/18 07:52 Albumin 2.7 g/dL (3.5-5.0) L 08/13/18 07:52 Globulin 2.9 gm/dL (2.2-3.9) 08/13/18 07:52 Albumin/Globulin Ratio 1.0 (1.0-2.1) 08/13/18 07:52 Lipase 98 U/L (23-300) 08/10/18 07:25 Urine Color Yellow (YELLOW) 08/09/18 17:00 Urine Clarity Clear (Clear) 08/09/18 17:00 Urine pH 5.0 (5.0-8.0) 08/09/18 17:00 Ur Specific [place] 1.011 (1.003-1.030) 08/09/18 17:00 Urine Protein Negative mg/dL (NEGATIVE) 08/09/18 17:00 Urine Glucose (UA) Normal mg/dL (Normal) 08/09/18 17:00 Urine Ketones Negative mg/dL (NEGATIVE) 08/09/18 17:00 Urine Blood 1+ (NEGATIVE) H 08/09/18 17:00 Urine Nitrate Negative (NEGATIVE) 08/09/18 17:00 Urine Bilirubin Negative (NEGATIVE) 08/09/18 17:00 Urine Urobilinogen 4.0 mg/dL (0.2-1.0) 08/09/18 17:00 Ur Leukocyte Esterase Negative [place]/uL (Negative) 08/09/18 17:00 Urine WBC (Auto) 1 /hpf (0-5) 08/09/18 17:00 Urine RBC (Auto) 3 /hpf (0-3) 08/09/18 17:00 Ur Squamous Epith Cells 1 /hpf (0-5) 08/09/18 17:00 Hyaline Casts 0-2 /lpf (0-2) 08/09/18 17:00 Fluid Source Peritoneal/ascites 08/10/18 21:13 Fluid Appearance Sl cloudy (CLEAR) 08/10/18 21:13 Fluid WBC 42.0 /mm3 (0.0-300.0) 08/10/18 21:13 Fluid RBC 93.0 /mm3 (0.0-0.0) H 08/10/18 21:13 Fluid Tot Cell Count 100 (0-0) H 08/10/18 21:13 Fluid Neutrophils 26.0 % (0-0) H 08/10/18 21:13 Fluid Lymphocytes 52.0 % (0-0) H 08/10/18 21:13 Fld Monocyte/Macrophag 22 % (0-0) H 08/10/18 21:13 Fluid Comment 08/10/18 21:13 Stool Occult Blood Negative (NEGATIVE) 08/09/18 20:31 Alcohol, Quantitative 203 mg/dl (0-10) H 08/09/18 16:30 Blood Type O POSITIVE 08/09/18 16:30 Antibody Screen Negative 08/09/18 16:30 Attending/Attestation - Attestation I have personally seen and examined this patient.: Yes I have fully participated in the care of the patient.: Yes I have reviewed all pertinent clinical information, including history, physical exam and plan: Yes Notes (Text): 08/13/18 13:22 Medical attending: Patient was seen and examined by me. Agree with the above note by the resident The patient was not in any acute distress. Per hepatobilliary surgery evaluation notes the patient needs to abstain from alcohol and be compliant with his medications - and in the future if he has recurrent ascities at that point they can try to repair the TIPS he had from before. There was an U/S in showing malfunctioning of it at this time We urged him very strongly that he needs to stop drinking and be compliant with his medications - otherwise his situation will deteriorate further We used a Danish translation to help the patient understand Carlos Raman
[2018-08-13 12:05] LABS: INR 1.3; PROTHROMBIN TIME 14.6 SECONDS (9.7-12.2)
[2018-08-14 05:17] LABS: GLUCOSE PERITONEAL FLUID 155 mg/dL; LDH PERITONEAL FLUID 49 U/L (<63); TOTAL PROTEIN PERITONEAL FLUID <3.0 g/dL
== END 2018-08-13 15:49 | disposition home or self-care (01) | DRG 280 ==
LOC: C.ER 13:44 → C.9E 17:47 → C.3T 19:47
PROVIDERS: ADMIT Internal Medicine; ATTEND Internal Medicine
PROC: 0W9G3ZZ Drainage of Peritoneal Cavity, Percutaneous Approach (ICD-10-PCS; principal; 2018-08-10)
PROC: B50 Imaging, Veins, Plain Radiography (ICD-10-PCS; 2018-08-11)
DX: K70.31 Alcoholic cirrhosis of liver with ascites (principal); K70.11 Alcoholic hepatitis with ascites; Z94.4 Liver transplant status; K76.6 Portal hypertension; K42.9 Umbilical hernia without obstruction or gangrene; N40.1 Benign prostatic hyperplasia with lower urinary tract symptoms; R31.0 Gross hematuria; R33.8 Other retention of urine; Y90.7 Blood alcohol level of 200-239 mg/100 ml; Z87.891 Personal history of nicotine dependence; F10.20 Alcohol dependence, uncomplicated